=== PATIENT | female | born 1955 | race Caucasian/White ===

== ENCOUNTER 2025-04-02 11:39 | Outpatient (CLI) | payer MEDICARE, OTHER, SELFPAY ==
--- NOTE | 2025-04-02 12:49 | ECG_ITS ---
Test Date: 2025-04-02 13:06:20 Measurements Intervals [place] Rate: 66 P: 94 NV: 154 QRS: -22 QRSD: 110 T: 15 QT: 382 QTc: 402 Interpretive Statements SINUS RHYTHM LOW QRS VOLTAGE IN PRECORDIAL LEADS INCOMPLETE RIGHT BUNDLE BRANCH BLOCK BORDERLINE ST-T WAVE ABNORMALITY- ANTEROLAT/INF LEADS BASELINE ARTIFACT- I, II, III, AVR, AVL, AVF, V1-V6 BORDERLINE ECG No previous ECG available for comparison Electronically Signed On 04-02-2025 14:33:52 CDT by Hilario Mott D.O.
[2025-04-02 13:10] LABS: Basophils Percent Auto 0.2 % (0.2-1.2); Eosinophils Absolute Auto 0.2 K/mm3 (0-0.3); Hematocrit 38.3 % (37.0-47.0); Hemoglobin 12.3 g/dL (12.0-15.0); Immature Granulocyte Absolute 0.02 K/mm3 (0.00-0.031); Immature Granulocyte Percent A 0.2 % (0-0.5); Lymphocytes Absolute Auto 1.45 K/mm3 (0.9-3.2); Lymphocytes Percent Auto 17.5 % (18.3-44.2); Mean Corpuscular HGB Conc 32.1 g/dl (32-36); Mean Corpuscular Volume 90.3 fl (80-100); Mean Platelet Volume 9.7 fl (7.4-10.4); Monocytes Absolute Auto 0.6 K/mm3 (0.1-0.6); Monocytes Percent Auto 6.6 % (2.6-8.5); Neutrophils Absolute Auto 6.1 K/mm3 (1.3-6.7); Neutrophils Percent Auto 73.5 % (45.5-73.1); Platelet Count Result 266 k/mm3 (150-375); Red Blood Count 4.24 M/mm3 (4.2-5.4); Red Cell Distribution Width 12.6 % (11.5-14.5); White Blood Count 8.3 K/mm3 (4.5-10.0)
[2025-04-02 13:18] LABS: Albumin Level 4.7 g/dL (3.5-5.1); Anion Gap 12 mmol/L (4-12); Blood Urea Nitrogen 25 mg/dL (7-17); Carbon Dioxide 22 mmol/L (22-30); Chloride 105 mmol/L (98-107); Estimated Glomerular Filt Rate 59; Glucose 91 mg/dL (65-110); Potassium 4.2 mmol/L (3.4-5.0); Sodium 139 mmol/L (137-145)
[2025-04-02 13:59] LABS: Urine Cotinine NEGATIVE
[2025-04-02 14:11] LABS: Hemoglobin A1C 5.5 % (<5.7)
== END 2025-04-02 11:40 | disposition home or self-care (01) ==
LOC: ANHSURGERY 11:46
PROVIDERS: PCP Physician Assistant; Visit Provider Orthopaedic Surgery
DX: Z01.818 Encounter for other preprocedural examination (principal); M16.12 Unilateral primary osteoarthritis, left hip
CPT/HCPCS: 80048; 80307; 82040; 83036; 85025; 87081; 93005

== ENCOUNTER 2025-04-22 00:47 | Day surgery (SDC) | payer MEDICARE, OTHER, SELFPAY ==
[2025-04-02 11:52] VITALS: BMI 36.6
[2025-04-02 12:00] VITALS: BP 137/82; PULSE 67; RESP 16; TEMP 36.7; O2SAT 95
--- NOTE | 2025-04-02 12:22 | PC.NURSE ---
Report to the Outpatient Waiting Room, entrance under the green pavilion located off [facility], at time ___6:00AM____ on date ___04/22/25____. Planned Procedure Time: ___7:30AM .? Time changes happen often and if your time is changed the preop area will call you the afternoon before. - You and your visitor will be asked to self-screen and do not enter if you have any COVID symptoms. Please call surgeon if you need to reschedule. - A mask is optional within the hospital at this time. Patients may have clear liquids (water, carbonated beverages, clear teas, apple juice) until 3 hours prior to surgery (4:30AM) with a maximum of 20 ounces. - No food from midnight until time of surgery and no smoking, or chewing tobacco (or any form of nicotine). No chewing gum, candy or mints. Take only the following medications with a SIP of water on the morning of surgery: ____NONE DO NOT STOP ANY OF YOUR OTHER PRESCRIPTION MEDICATIONS PRIOR TO SURGERY EXCEPT THE FOLLOWING Medications to discontinue per physician ___HOLD DICLOFENAC (ALL NSAIDS) AND ALL VITAMINS/SUMMPLEMENTS 7 DAYS PRE-OP PER DR RABAGO Date to take last dose 04/14/25 Please no make-up, nail latvian, hairspray, perfume, deodorant, or body powder the day of surgery.? No jewelry (including any body piercings) or valuables the day of surgery, leave them at home.? Please take a shower or bath the night before, or the morning of, surgery with an antibacterial soap.? Wear comfortable, loose fitting clothing.? - Jewelry must be removed prior to entering the operating room.? Rings and piercings that are not removed may be cut off. - The hospital will not accept responsibility for valuables.? - Please leave all valuables, including medications, at home the day of surgery. If you are going home after surgery, a licensed taxi driver supervisor must drive you home.? - NO public transportation without another adult if you receive anesthesia. - We recommend that an adult stay with you for 24 hours following discharge. - We also recommend that you do not drive, make important decision, drink alcoholic beverages, or take any drugs that were not prescribed by your health care provider for at least 24 hours after your discharge time. Follow any additional instructions given to you from your surgeon. Telephone instructions given to PATIENT AND GRANDDAUGHTER and asked if any additional questions and then verbalized understanding. Patient advised to call surgeon office or pre surgery nurse liaison [phone] if any additional questions.
--- NOTE | 2025-04-19 08:04 | PM.IMHP ---
H&P: HPI History of Present Illness Date/Time: 04/19/25 08:04 Chief Complaint: Left hip DJD Narrative: 70-year-old female who presents today for a left total hip arthroplasty. Patient has been having symptoms for over year in the left hip. She has been on diclofenac 75 mg b.i.d.. Patient has advanced type 2 osteoarthritis left hip. At this point patient is having rather severe symptoms on a daily basis in the groin in posterior lateral buttocks. She has been using a cane regularly due to the pain in the hip. At this point she feels she is ready proceed with total hip arthroplasty rather than continue nonsurgical treatment. Review of Systems Review of Systems: All systems reviewed & are unremarkable except as noted in HPI and below PMFSH Surgical History Surgical History (Updated 01/23/25 @ 10:00 by Christina Richardson [facility]) History of bunionectomy History of cholecystectomy History of bilateral mastectomy Family History Family History (Updated 01/23/25 @ 10:00 by Christina Richardson [facility]) Mother DVT (deep venous thrombosis) Social History Social History (Updated 01/23/25 @ 10:08 by Jeimy Yanez [facility]) Smoking packs per day: 1 Smoking cigarettes per day: 20.0 Years smoked: 40 Smoking pack-years: 40.00 Smoking status: Former smoker Tobacco type: cigarettes Smoking end date: 12/16/16 Alcohol intake: current Substance use: never Current Housing: Decline to Answer Concerned About Future Housing: Decline to Answer Difficulty Paying Gas/Electric Bills: Decline to Answer Difficulty Paying for Meds: Decline to Answer Currently Unemployed: Decline to Answer Education: Decline to Answer Difficulty w/ Childcare or Family Care: Decline to Answer Living arrangements: alone Spiritual care concerns: No Meds Home Medications and Allergies Home Medications ?Medication ?Instructions ?Recorded ?Confirmed ?Type Allergy Relief 10 mg PO DAILY 01/23/25 04/02/25 History Move Free Joint Health 1 cap PO DAILY 01/23/25 04/02/25 History acetaminophen 500 mg oral powder 1,000 mg PO Q6H PRN pain 01/23/25 04/02/25 History packet (Tylenol Extra Strength) famotidine 40 mg tablet 40 mg PO QHS 01/23/25 04/02/25 History diclofenac sodium 75 mg 75 mg PO Q12H PRN pain 04/02/25 04/02/25 History tablet,delayed release glucosamine sulfate 500 mg tablet 500 mg PO DAILY 04/02/25 04/02/25 History (Glucosamine) loratadine 10 mg tablet (Claritin) 10 mg PO DAILY 04/02/25 04/02/25 History Allergies Allergy/AdvReac Type Severity Reaction Status Date / Time ciprofloxacin (From Cipro) Allergy Mild Rash Verified 04/02/25 12:08 Sulfa (Sulfonamide Allergy Mild Rash Verified 04/02/25 12:08 Antibiotics) atorvastatin AdvReac MUSCLE PAIN Verified 04/02/25 12:08 Exam Narrative: 70-year-old female alert pleasant. She is 5 ft 4 and 205 lb BMI is 34.9. Left hip range of motion is from 0-95 degrees. Internal rotation lacks 5? shy of neutral and external rotation is to 50. She has anterior groin pain with full flexion and internal rotation. She has normal abduction strength and minimal tenderness over the greater trochanter. Stinchfield maneuver causes her anterior thigh pain. She walks with a pronounced limp. 1+ dorsalis pedis and posterior tibial artery pulse palpable. No edema in either lower extremity. She has normal sensation both lower extremities. Resp: Auscultation: clear to auscultation bilaterally Cardio: Rate: regular rate Rhythm: regular rhythm Assessment and Plan Assessment and plan (1) Primary osteoarthritis of left hip: Code(s): M16.12 - Unilateral primary osteoarthritis, left hip Status: Acute Assessment and Plan: 70-year-old female who has advanced osteoarthritis left hip. She is having severe symptoms on a daily basis and feels this point she is ready proceed with total hip arthroplasty. Surgical procedures well as the risks and complications were discussed in detail all questions were answered and we will proceed. Patient will stop her diclofenac 1 week prior to surgery. She will also avoid any aspirin ibuprofen products 1 week prior to surgery. Her nasal swab was negative. Hemoglobin is 12.3 and platelets were 266. Chem panel insert creatinine at 0.94. Patient will see her primary care doctor for pre-surgical clearance.
[2025-04-22] VITALS (18 sets, daily range): BP systolic 104–157; BP diastolic 53–95; PULSE 71–103; RESP 12–86; TEMP 36.4–36.7; O2SAT 94–100; BMI 36.5
--- NOTE | ~2025-04-22 | XR_ITS ---
EXAMINATION: XR surgery orthopedic DATE: 04/22/2025 11:29 INDICATION: Intraoperative evaluation during left total hip arthroplasty TECHNIQUE: Single AP fluoroscopic image of the left hip was obtained during procedure performed by Dr Armen Brito. Radiologist was not present for the imaging or procedure. The amount of fluoroscopy time u sed during this procedure was 0.9 minutes. Total DAP was 0.437 mGym^2. FINDINGS: Intraoperative image during a left total hip arthroplasty demonstrate placement of a left total hip a rthroplasty the acetabular component of which is fixed with at least. 2 screws and which appears in n ear anatomic alignment on the single image provided. Portions of the pelvis are excluded from the fie ld-of-view. No fractures in the visualized bones. IMPRESSION: 1. Expected appearance during left total hip arthroplasty. See procedure note for further detail. Reviewed, dictated and finalized at location A. IMPRESSION: 1. Expected appearance during left total hip arthroplasty. See procedure note f or further detail.
--- NOTE | ~2025-04-22 | XR_ITS ---
XR hip LT 1V w AP pelvis Ordering provider: Michael Brito MD History: . LEFT TOTAL HIP ANTERIOR APPROACH . Comparison: None. FINDINGS: BONES: No acute fracture or dislocation. HIP JOINT SPACES: Left hip arthroplasty. Severe right hip osteoarthritic changes. PUBIC SYMPHYSIS: Normal. SOFT TISSUES: Postoperative changes in the left hip area. IMPRESSION: No acute osseous abnormality pelvis. Left hip arthroplasty. Reviewed, dictated and finalized at location A.
--- OUTSIDE RECORDS SUMMARY | 2025-04-22 01:02 | XMS_ITS | Clinical Summary ---
Author Organization [facility] Address [address] [place] [address] Care Team Providers Care Manager Advertising Name Role Phone Katy Farooq PA-C Primary Care Provider [phone] Neal Albright DPM Unavailable [phone] Dejuan Solis MD Unavailable [phone] Kendall Richardson MD Unavailable Allergies Active Allergy Reactions Criticality Noted Date Comments Atorvastatin Joint Pain 04/04/2025 Ciprofloxacin Itching,Myalgias Medium 03/21/2020 Sulfa Antibiotics Unknown 07/20/2012 Medications Glucosamine HCl 1500 MG Tab Take by mouth daily. 013 Active Fexofenadine HCl (ALLERGY 24-HR OR) Take by mouth daily. Active acetaminophen (TYLENOL) 500 MG tablet Take 2 tablets (1,000 mg total) by mouth daily as needed for Pain. Active mupirocin (BACTROBAN) 2 % ointment APPLY TO WOUNDS TWICE DAILY UNTIL HEALED. NARES PRECAUTIONS 024 Active clobetasol (TEMOVATE) 0.05 % ointmentIndicatio ns:Eczema of both hands Apply topically 2 (two) times daily. 60 g 1 025 Active diclofenac EC (VOLTAREN) 75 MG tabletIndications :Primary osteoarthritis of knees, bilateral Take 1 tablet (75 mg total) by mouth 2 (two) times daily. 180 tablet 3 025 Active famotidine (PEPCID) 40 MG tabletIndications :Gastroesophageal reflux disease without esophagitis Take 1 tablet (40 mg total) by mouth nightly at bedtime. at bedtime 90 tablet 3 025 Active omeprazole (PRILOSEC) 40 MG capsuleIndication s:Gastroesophagea l reflux disease without esophagitis Take 1 capsule (40 mg total) by mouth daily. 30 capsule 2 025 2024 Discontinued traMADol (ULTRAM) 50 MG tabletIndications :Chronic Pain Take 1 tablet (50 mg total) by mouth every 6 (six) hours as needed for Pain. Indications: Chronic Pain 20 tablet 025 2024 Discontinued atorvastatin (LIPITOR) 40 MG tabletIndications :Dyslipidemia Take 1 tablet (40 mg total) by mouth nightly at bedtime. 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 The only thing proven to slow the progression of osteoarthritis is weight loss. Every pound lost relieves 4 to 6 pounds of stress across the knee. We discussed unloading braces. Formal physical therapy to help with flexibility, mobility, and strength. We discussed TENS units. Nonsteroidal anti-inflammatories as well as Tylenol and pain medication and their side effects. We discussed steroid versus Visco supplement injection. We discussed eventual total knee arthroplasty. Because the patient is not having any pain at this time, she will continue using a brace and taking the Diclofenac and Tylenol. She will give us a call when she is having pain and we can give her a steroid shot at that time. Rosacea 04/28/2015 Overview (09/21/2018): acting up Malignant neoplasm of female breast ([facility]) 08/22/2013 Overview (09/21/2018): bilateral mastectomies with reconstruction Malignant neoplasm of other specified sites of female breast Onychomycosis of toenail 08/07/2012 Resolved Problems Problem Noted Date Diagnosed Date Resolved Date Equinus deformity of right foot 02/23/2018 09/21/2018 Plantar fasciitis 10/13/2017 09/21/2018 Onychogryposis 08/07/2012 09/21/2018 Encounters Date Type Department Care Team Description 04/04/2025 11:40 AM CDT Office Visit [address] [phone] Katy Farooq PA-C Follow Up 04/04/2025 Travel 02/11/[address] [phone] Katy Farooq PA-C Medication Problem 01/31/[address] [phone] Katy Farooq PA-C Question 01/29/[address] [phone] Katy Farooq PA-C Question 01/28/2025 8:40 AM CDT Office Visit [address] [phone] Katy Farooq PA-C Follow Up (Talk about orthopedic appt ); Acid Reflux (The medication has been helping ) 01/28/2025 Travel 01/23/2025 Scan [facility] SRVCS Scanned, Doc [facility] from Last 3 Months Immunizations Immunization Administration Dates Next Due [facility] COVID-19 (12+) MRNA, LNP-S, PF, 100 MCG/ 0.5 ML DOSE 02/02/2021,01/05/2021 MODERNA COVID-19 (INSULATION BLOWER LISA SHWETA), MRNA, LNP-S, PF, 50 MCG/ 0.25 ML DOSE 05/17/2022,11/17/2021 PFIZER COVID-19 BIVALENT (12 +) mRNA, LNP-S, PF, 30 MCG/0.3 ML DOSE 11/25/2022 Pneumococcal (Prevnar 20) 12/28/2022 Shingrix 01/13/2023,11/13/2022 Tdap (Generic) 12/13/2022,03/07/2013 Family History Medical History Relation Comments melanoma Daughter Hypertension Father ? [place] Father Dementia Maternal Grandfather Diabetes Maternal Grandmother Stroke Maternal Grandmother Breast Cancer Mother mets to liver, l shekhar, brain Dementia Mother Diabetes Paternal Grandfather muscular dystrophy Paternal Grandmother ? No Known Problems Son Relation Status Comments Daughter Father Maternal Grandfather Maternal Grandmother Mother Paternal Grandfather Paternal Grandmother Son Social History Tobacco Use Types Packs/Day Years Used Date Smoking Tobacco: Former Cigarettes 1 42.2 1 975 - 12/16/2016 Passive Smoke Exposure: Past Smokeless Tobacco: Never Tobacco Cessation:Counseling Given: No Comments:Former smoker Alcohol Use Standard Drinks/Week Comments Yes 0 (1 standard drink = 0.6 oz pur e alcohol) Occastioanlly, once/month PHQ-2 Answer Date Recorded Patient Health Questionnaire-2 Score 0 01/28/2025 Comments No Sex and Gender Information Value Date Recorded Sex Assigned at Female 12/10/2024 1:26 PM [employer] DEVELOPER Legal Sex Female 7:40 PM CDT Gender Identity Not on file Sexual Orientation Not on file 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 [employer] Not on file N ot on file Not on file Last Filed Vital Signs Vital Sign Reading Time Taken Comments Blood Pressure 118/69 04/04/2025 11:28 AM CDT Pulse 79 04/04/2025 11:28 AM CDT Temperature 36.8 C (98.3 F) 04/04/2025 11:28 AM CDT Respiratory Rate 18 04/04/2025 11:28 AM CDT Oxygen Saturation 97% 04/04/2025 11:28 AM CDT Inhaled Oxygen Concentration - - Weight 95 kg (209 lb 6.4 oz) 04/04/2025 11:28 AM CDT Height 167.6 cm (5' 6) 12/17/2024 1:14 PM CDT Body Mass Index 33.8 12/17/2024 1:14 PM CDT Plan of Treatment Health Maintenance Due Date Last Done Comments Hepatitis C 02/11/1972 Lung Cancer Screening 02/11/2004 Annual Medicare Wellness Visit 2019 Dexa Scan (General) 2019 Colorectal Cancer Screening Colonoscopy (10 Years) 06/17/2020 06/17/2010 COVID-19 Vaccine ( season) 2024 11/25/2022, 05/17/2022, 11/17/2021, Additional history exists RSV Immunization or 60+ Years (1 - 1-dose 75+ series) 2029 DTaP, Tdap and Td Vaccines (3 - Td or Tdap) 12/13/2032 12/13/2022, 03/07/2013 Pneumococcal Vaccine: 50+ Years Completed 12/28/2022 Zoster Vaccines Completed 01/13/2023, 11/13/2022 PHQ-2 (Physician [place]) Completed 01/28/2025 Meningococcal B Vaccine Aged Out No l onger eligible based on patient's age to complete this topic Meningococcal Vaccine Aged Out No russell amber eligible based on patient's age to complete this topic RSV Immunizations Under 20 Months Aged Out No longer eligible based on patient's age to complete this topic Procedures Procedure Name Priority Date/Time Associated Diagnosis Comments COLONOSCOPY GENERIC (SCAN ORDER) Routine 06/17/2010 from Last 3 Months or Most Recently Relevant to Health Maintenance Results * COLONOSCOPY (06/17/2010) us Documents Scanned SCANNING Edited Result - Final from Last 3 Months or Most Recently Relevant to Health Maintenance Insurance MEDICARE [facility] [employer] Care Teams Manager Advertising Relationship Specialty Start Date End Date Katy Farooq PA-C [id number] [address] PCP - General PHYSICIAN FUNERAL LOCATION MANAGER 09/21/18 Neal Albright DPM [address] [facility] [address] [place] [address] Referring Physician PODIATRY/SURGERY 04/29/21 Dejuan Solis MD [address] [facility] [address] [place] [address] Consulting Physician ORTHOPAEDIC SURGERY 04/29/21 Kendall Richardson MD [address] [place] [address] Referring Physician OPHTHALMOLOGY 05/09/23
--- OUTSIDE RECORDS SUMMARY | 2025-04-22 01:02 | XMS_ITS | Patient Health Record ---
Author Organization [facility] Address [address] [place], [place] [id number] Care Team Providers Care Senior Cognos Developer Name Role Phone VICTORIA DELGADO Unavailable [phone] Katy Farooq Unavailable Unavailable Reason For Referral No Information Medications Medication SIG (Take, Route, Frequency, Duration) Notes Start Date End Date Status diclofenac sodium 75 MG Delayed Release Oral Tablet ORAL diclofenac sodium 75 MG Delayed Release Oral TabletOriginal Medicationdiclofenac sodium 75 MG Delayed Release Oral Tablet *Reorder from mapp2link for eRx and Interaction Alerts* 09/23/2020 Active Plan Of Treatment No Information Insurance Providers Payer Name Payer Address Payer Phone Subscriber Number Group Number Insured Name Patient Relationship to Insured Coverage Start Date Coverage End Date Medicare Part B [place] [address] [place] [address] [id number] JOHANNE SINGER Self - patient is the insured [employer] [address] [place] [address] [id number] JOHANNE SINGER Self - patient is the insured [facility] [address] [place], [place] [id number] JOHANNE SINGER Self - patient is the insured
[2025-04-22] MEDS: LACTATED RINGERS 1,000 ML 30 ML IV CONT ×2 (06:25→11:54)
[2025-04-22] MEDS: ACETAMINOPHEN 500 MG TABLET 1000 MG PO (06:35)
[2025-04-22] MEDS: VANCOMYCIN 1,500 MG/NS 500 ML BAG 250 MG IVPB (06:50)
[2025-04-22] MEDS: TRANEXAMIC ACID 1,000MG/ISO100 1,000 MG/100 ML BAG 200 MG IVPB (07:12)
--- NOTE | 2025-04-22 07:13 | WPDHPUPDATE1 ---
History and Physical Update Update Date/Time: 04/22/25 07:13 History and Physical has been reviewed, including an updated exam of the patient. There are NO changes in the patient's condition. Risks, benefits, and alternatives have been discussed and questions answered. Patient agrees to proceed with procedure.
--- NOTE | 2025-04-22 07:24 | P.PNAN_ITS ---
Anes - Initial Pre Proc Eval Procedure: Operation Date: 04/22/25 07:30 Proposed Procedures p Left Total Hip Arthroplasty, Direct Anterior Approach - Michael Brito MD Date/Time: 04/22/25 07:24 Surgeon: Michael Brito MD Pre Op Diagnosis: OA left hip Patient Data Age: 70 Gender: F Height: 1.61 m Weight: 95 kg Last Vital Signs Temp 97.8 F 04/22/25 05:50 Pulse 71 04/22/25 05:50 Resp 14 04/22/25 05:50 BP 157/81 H 04/22/25 05:50 Pulse Ox 96 04/22/25 05:50 O2 Del Method Room Air 04/22/25 05:50 Allergies Allergy/AdvReac Type Severity Reaction Status Date / Time ciprofloxacin (From Cipro) Allergy Mild Rash Verified 04/22/25 06:37 Sulfa (Sulfonamide Allergy Mild Rash Verified 04/22/25 06:37 Antibiotics) atorvastatin AdvReac MUSCLE PAIN Verified 04/22/25 06:37 Home Medications ?Medication ?Instructions ?Recorded ?Confirmed ?Type acetaminophen 500 mg oral powder 1,000 mg PO Q6H PRN pain 01/23/25 04/22/25 History packet (Tylenol Extra Strength) famotidine 40 mg tablet 40 mg PO QHS 01/23/25 04/02/25 History diclofenac sodium 75 mg 75 mg PO Q12H PRN pain 04/02/25 04/22/25 History tablet,delayed release glucosamine sulfate 500 mg tablet 500 mg PO DAILY 04/02/25 04/22/25 History (Glucosamine) loratadine 10 mg tablet (Claritin) 10 mg PO DAILY 04/02/25 04/02/25 History Laboratory Tests 04/22/25 06:17 Blood Type O Negative Antibody Screen Negative Patient hx anesthesia problems: none Family hx anesthesia problems: none Results Review: All pre-operative results and documents have been reviewed as part of the pre- operative evaluation. [facility] Surgical History Surgical History (Updated 01/23/25 @ 10:00 by Christina Richardson CMA) History of bunionectomy History of cholecystectomy History of bilateral mastectomy Family History Family History (Updated 01/23/25 @ 10:00 by Christina Richardson CMA) Mother DVT (deep venous thrombosis) Social History Social History (Updated 01/23/25 @ 10:08 by Jeimy Yanez CMA) Smoking packs per day: 1 Smoking cigarettes per day: 20.0 Years smoked: 40 Smoking pack-years: 40.00 Smoking status: Former smoker Tobacco type: cigarettes Smoking end date: 12/16/16 Alcohol intake: current Substance use: never Current Housing: Decline to Answer Concerned About Future Housing: Decline to Answer Difficulty Paying Gas/Electric Bills: Decline to Answer Difficulty Paying for Meds: Decline to Answer Currently Unemployed: Decline to Answer Education: Decline to Answer Difficulty w/ Childcare or Family Care: Decline to Answer Living arrangements: alone Spiritual care concerns: No Anes - Eval Final PreProcedure Day of Procedure 04/22/25 07:24 Patient weight: obese Heart: regular rate and rhythm Lungs: clear to auscultation Airway: Mallampati scale class II Neurological: alert and oriented Last oral intake: >/= 8 hours ASA classification: III Emergent: no Anesthetic plan: proceed Anesthesia type and monitoring: general ETT and standard monitoring Results Review: All pre-operative results and documents have been reviewed as part of the pre- operative evaluation. Informed Consent: The patient's anesthetic plan and its attendant risks and benefits were discussed with the patient/family/POA. Questions were solicited and answers provided to the satisfaction of the patient/family/POA.
[2025-04-22] MEDS: ceFAZolin 2 GM in SODIUM CHLORIDE 0.9% IV 50 ML 100 ML IVPB (07:38)
[2025-04-22] MEDS: SODIUM CHLORIDE 0.9% IV 37.7 ML, MORPHINE SULFATE INJ (*CRX) 2 MG, ROPivacaine HCL 1% 2... INFILTRATE (08:31)
[2025-04-22] MEDS: TRANEXAMIC ACID 1,000 MG/10 ML AMPUL 1000 MG IV PUSH (11:19)
[2025-04-22] MEDS: KETOROLAC 15 MG/ML VIAL (*BKC) IV PUSH ×2 (11:26→18:08)
--- NOTE | 2025-04-22 12:00 | PM.OP ---
Procedure Note - Brief Procedure Note - Brief Date of procedure: 04/22/25 OA left hip Procedure performed: Left anterior total hip arthroplasty Surgeon: VALERIA Carney Findings: 70-year-old female underwent left anterior total hip arthroplasty on 04/22. I was involved in the procedure including positioning the patient on the OR table 1st assisting through the time surgery. Total time was 3-1/2 hours
--- NOTE | 2025-04-22 12:08 | P.OP_ITS ---
Procedure Note - Detailed Date of Procedure 04/22/25 Pre-op Diagnosis OA left hip, obesity BMI 36.5 Post-op Diagnosis Same Procedure Performed Left total hip arthroplasty direct anterior approach Surgeon Michael Brito MD [employer] Kat Anesthesia General Description of Procedure Patient was brought to the operating room and general anesthesia was administered. Dale catheter was placed. Boots were applied the feet after padding and [facility] hip prepped and draped in usual fashion. SCDs were on the calves and running during the procedure. Weight based vancomycin, 2 g Ancef and 1 g TXA given preoperatively. There was extra difficulty with the procedure due to her obesity with BMI of 36.5 which she had approximately 45 minutes of surgical time to the procedure. A 10 cm longitudinal incision was made starting 3 cm lateral to the ASIS. Dissection was carried down to the fascia over the tensor fascia nilton which was longitudinally incised. Fascia elevated off the anterior 50% of the tensor fascia nilton muscle and interval between TFL and rectus femoris developed. Crossing branches of ascending lateral femoral circumflex vessels were ligated with suture and divided. Retractor was placed anteromedial to the capsule the hip abducted internally rotated the gluteus minimus elevated off the lateral capsule. Inverted T capsulotomy was made a femoral neck osteotomy made according to preoperative templating. Femoral head was removed. It was severely arthritic. The acetabulum was exposed. There were granulation tissue covered erosions covering most of the superior surface of the acetabulum. Labrum was excised. The posterolateral rim of the acetabulum was loose. This was the shell covering the prominent superolateral acetabular cyst that showed on the x-rays from February. This shell of bone was loose and therefore removed. 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 The cyst therefore was uncontained and not suitable for grafting. The leg was externally rotated extended with the table hook in place and complete release of the residual lateral capsule over attachment on the femur performed. The exposure the proximal femur was still limited. Interval between conjoined tendon and piriformis was incised which allowed the conjoined tendon to recess in the piriformis to flip. With the leg back in the horizontal position the acetabulum was exposed. Under fluoroscopic guidance we medialized to the medial wall with a 44 Reamer. Due to the wear on the posterior acetabular rim and wall, care was taken to avoid posterior reaming. We reamed up to a size 49 and a light reaming with the size 50. This did not quite reach the periphery anteriorly or superiorly. The 51 trial was not snug and therefore the 50.5 mm diameter emphasis shell size 50 was felt to be too small. We reamed up to a size 51 which came very close to the periphery and the 52 trial shell fit snugly. We chose the 52 pinnacle cup. This was seated fully at 40? of abduction and appropriate anteversion and this achieved a nice press fit. A 40 mm long screw was inserted into the superior ilium which had excellent purchase. The posterior superior screw was only a 15. This obtained good purchase though. The 36 inner diameter polyethylene liner was fully seated. The femur was then exposed with external rotation leg extension and anterior elevation with the table hook and we broached up to a size 7 which had torsional stability. On trialing we had matched our preoperative depth of broach seating planned. The standard neck 5 mm head lengthened the leg 3 mm and was still s omewhat loose with lateral translation with the bone hook being too loose I felt. With the high offset neck and a 1.5 mm head this gave equal leg lengths under fluoro referencing the lesser tuberosities and very appropriate soft tissue tension to longitudinal Shuck and lateral translational pull. We confirmed torsional stability of the 7 broach again and calcar planed and placed the size 7 high offset Actis stem which seated fully the collar resting on the calcar no cracks in the bone. The 1.5 by 36 mm ceramic head was impacted on the clean and dried trunnion the hip reduced stability reconfirmed. The superior limb of the capsulotomy was approximated with 2. Vicryl. The local anesthetic cocktail was injected in the periarticular soft tissues. Two additional g of Ancef 1 g of TXA administered. Wound was dry at time of wound closure. The fascia was closed with running 1. Vicryl. Drain placed deep in the subcu skin closed with 2 subcutaneous Vicryl and glue. Cell Saver estimated total blood loss at 950 cc. 375 cc of packed cells given back from the Cell Saver. She tolerated the procedure well transferred to postop recovery room stable condition. As the bone quality of her acetabulum was suboptimal due to the posterolateral acetabular rim defect I will plan to have her be 50% weight-bearing with a walker for the 1st month. [facility] Billing Surgery - Charge Forward: Surgery Billing (Left total hip replacement)
[2025-04-22] MEDS: fentaNYL CITRATE INJ (*CRX) 100 MCG/2 ML VIAL 25 MCG IV PUSH (12:25)
[2025-04-22] MEDS: ONDANSETRON INJ 4 MG/2 ML VIAL IV PUSH (12:39)
--- NOTE | 2025-04-22 13:51 | SUR.PHASEI ---
1315: Patient meets PACU discharge criteria, unit bed unavailable at this time. Patient placed in extended recovery status.
[2025-04-22] MEDS: PROPARACAINE HCL 0.5% 15 ML OPHTH SOLN 1 DROP EACH EYE (16:10)
[2025-04-22] MEDS: ARTIFICIAL TEARS OPHTH SOLN 15 ML BOTTLE 1 DROP EACH EYE ×2 (16:12→17:48)
[2025-04-22] MEDS: DICLOFENAC SODIUM 0.1% OPHTH SOLN 2.5 ML BOTTLE 1 DROP EACH EYE (16:13)
--- NOTE | 2025-04-22 16:26 | ADMGEN ---
This patient, Charlene Cheung, was admitted to -. Patient/family oriented to hospital policies and general routines including ID bracelet, bed and alarms, visiting hours, pain management, procedures, bathroom and other care routines, personal items, smoking policy, room service/diet, and visiting hours. Information on how to activate the Rapid Response Team has been discussed. Patient/Family are encouraged to report perceived risks to care and to ask questions if they do not understand what they are told or what they should do.
[2025-04-22] MEDS: dexAMETHasone SOD PHOS INJ 10 MG/ML 1 ML VIAL IV PUSH (16:51)
[2025-04-22] MEDS: ceFAZolin 2 GM/D5W 50 ML 2 GM/50 ML BAG IVPB (17:26)
[2025-04-22] MEDS: SENNA/DOCUSATE SODIUM TABLET 2 TAB PO (17:37)
[2025-04-22] MEDS: ACETAMINOPHEN 325 MG TABLET 650 MG PO ×2 (17:37→21:14)
[2025-04-22] MEDS: VANCOMYCIN HCL 1,000 MG in SODIUM CHLORIDE 0.9% IV 250 ML 250 MG IVPB (18:43)
[2025-04-22] MEDS: oxyCODONE HCL (*CRX) 5 MG TAB IR PO (21:14)
[2025-04-22] MEDS: FAMOTIDINE 20 MG TABLET PO (21:14)
[2025-04-23] MEDS: ACETAMINOPHEN 325 MG TABLET 650 MG PO ×4 (00:40→12:35)
[2025-04-23] MEDS: oxyCODONE HCL (*CRX) 5 MG TAB IR PO ×3 (00:40→09:29)
[2025-04-23] MEDS: KETOROLAC 15 MG/ML VIAL (*BKC) IV PUSH (00:41)
[2025-04-23] MEDS: ceFAZolin 2 GM/D5W 50 ML 2 GM/50 ML BAG IVPB ×2 (00:43→09:25)
[2025-04-23 02:41] VITALS: BP 100/52; PULSE 72; RESP 20; TEMP 36.3; O2SAT 94
[2025-04-23] MEDS: DICLOFENAC SODIUM 0.1% OPHTH SOLN 2.5 ML BOTTLE 1 DROP EACH EYE ×2 (05:18→15:04)
[2025-04-23 05:22] VITALS: BP 92/76; PULSE 76; RESP 20; TEMP 36.7; O2SAT 95
[2025-04-23 05:25] LABS: Hematocrit 29.0 % (37.0-47.0); Hemoglobin 9.3 g/dL (12.0-15.0); Immature Granulocyte Percent A 0.5 % (0-0.5); Lymphocytes Absolute Auto 0.79 K/mm3 (0.9-3.2); Mean Corpuscular HGB Conc 32.1 g/dl (32-36); Mean Corpuscular Hemoglobin 29.0 pg (26-34); Mean Corpuscular Volume 90.3 fl (80-100); Nucleated Red Blood Cells Absolute Auto 0.000 K/mm3 (0.0-0.012); Nucleated Red Blood Cells Perc 0.0 % (0.0-0.2); Platelet Count Result 262 k/mm3 (150-375); Red Blood Count 3.21 M/mm3 (4.2-5.4); White Blood Count 10.8 K/mm3 (4.5-10.0)
[2025-04-23 05:45] LABS: Anion Gap 10 mmol/L (4-12); Blood Urea Nitrogen 22 mg/dL (7-17); Calcium 8.8 mg/dL (8.4-10.2); Carbon Dioxide 20 mmol/L (22-30); Chloride 106 mmol/L (98-107); Estimated CRCL calculation 53 ml/min; Estimated Glomerular Filt Rate 58; Glucose 135 mg/dL (65-110); Potassium 4.2 mmol/L (3.4-5.0); Sodium 136 mmol/L (137-145)
[2025-04-23 05:50] VITALS: BP 118/60
[2025-04-23] MEDS: VANCOMYCIN HCL 1,000 MG in SODIUM CHLORIDE 0.9% IV 250 ML 250 MG IVPB (06:08)
--- NOTE | 2025-04-23 07:18 | PM.PNORT ---
Subjective Subjective Date/Time Seen: 04/23/25 07:18 Interval history: Postop day 1 patient is alert. She is afebrile vital signs stable. Blood pressure running slightly low. Patient has not been out of bed except to use the restroom several times overnight. She got up to the floor late yesterday and therapy did not see her. Morning labs are noted. Patient's pain is well controlled. Drain is out dressing has been changed. Neurovascularly she is intact. Patient is 50% weight-bearing for the 1st month with the walker. Therapy is going to work with the patient this morning and again this afternoon to make sure she can maintain weight-bearing status. Also patient will be here till this afternoon for IV antibiotics and make sure her pain is well controlled. Eliquis will get started this morning. Will check on the patient's status later this morning to see how she is done with morning therapy. Objective Data Vital Signs Vital Signs: Vital Signs - 24 hr 04/22/25 11:54 04/22/25 12:00 04/22/25 12:15 Temperature 98.1 F Pulse Rate 99 92 90 Respiratory Rate 13 16 14 Blood Pressure 137/91 H 134/75 135/86 Pulse Oximetry 97 100 100 Oxygen Delivery Simple Face Mask Simple Face Mask Simple Face Mask Oxygen Flow Rate 8 8 8 04/22/25 12:30 04/22/25 12:45 04/22/25 13:00 Temperature Pulse Rate 87 86 103 H Respiratory Rate 18 14 16 Blood Pressure 142/89 H 142/81 H 144/80 H Pulse Oximetry 100 94 94 Oxygen Delivery Simple Face Mask Room Air Room Air Oxygen Flow Rate 8 04/22/25 13:15 04/22/25 13:45 04/22/25 14:15 Temperature Pulse Rate 85 82 81 Respiratory Rate 14 12 12 Blood Pressure 142/79 H 148/95 H 118/89 Pulse Oximetry 96 97 97 Oxygen Delivery Room Air Room Air Room Air Oxygen Flow Rate 04/22/25 14:45 04/22/25 15:15 04/22/25 15:45 Temperature Pulse Rate 87 75 85 Respiratory Rate 18 12 18 Blood Pressure 140/85 129/87 139/85 Pulse Oximetry 99 98 99 Oxygen Delivery Room Air Room Air Room Air Oxygen Flow Rate 04/22/25 16:15 04/22/25 16:45 04/22/25 17:51 Temperature 97.5 F L Pulse Rate 78 78 85 Respiratory Rate 12 16 86 H Blood Pressure 124/85 132/81 127/76 Pulse Oximetry 96 98 99 Oxygen Delivery Room Air Room Air Oxygen Flow Rate 04/22/25 18:56 04/22/25 20:00 04/22/25 22:00 Temperature 97.6 F Pulse Rate 85 84 Respiratory Rate 16 20 Blood Pressure 104/53 L Pulse Oximetry 99 95 Oxygen Delivery Room Air Room Air Oxygen Flow Rate 04/23/25 02:41 04/23/25 05:22 04/23/25 05:50 Temperature 97.4 F L 98.0 F Pulse Rate 72 76 Respiratory Rate 20 20 Blood Pressure 100/52 L 92/76 L 118/60 Pulse Oximetry 94 95 Oxygen Delivery Oxygen Flow Rate Intake/Output Intake/Output: Intake & Output 04/20/25 04/21/25 04/22/25 04/23/25 23:59 23:59 23:59 23:59 Intake Total 1190 400 Output Total 35 Balance 1190 365 Meds/Results Medications: Active Medications Generic Name Dose Route Start Last Admin Trade Name Freq PRN Reason Stop Dose Admin Acetaminophen 650 mg 04/22/25 17:00 04/23/25 05:49 Acetaminophen 325 Mg Tablet PO 650 mg Q4H ADAM Administration Apixaban 2.5 mg 04/23/25 09:00 Apixaban 2.5 Mg Tablet PO Q12HR ADAM Artificial Tears 1 drop 04/22/25 15:36 04/22/25 17:48 Artificial Tears Ophth Soln 15 Ml Bottle EACH EYE 1 drop Q2H PRN Administration Dry Eye(s) Cefdinir 300 mg 04/23/25 18:00 Cefdinir 300 Mg Capsule PO Q12H ADAM Diclofenac Sodium 1 drop 04/22/25 16:20 04/23/25 05:18 Diclofenac Sodium 0.1% Ophth Soln 2.5 Ml Bottle EACH EYE 1 drop Q8HR ADAM Administration Famotidine 20 mg 04/22/25 21:00 04/22/25 21:14 Famotidine 20 Mg Tablet PO 20 mg Q12HR ADAM Administration Cefazolin Sodium 2 gm in 50 mls @ 100 mls/hr 04/22/25 17:00 04/23/25 01:13 Ancef 2 Gm/D5w 50 Ml IVPB 04/23/25 09:29 Infused Q8H ADAM Infusion Vancomycin HCl 1,000 mg/ 250 mls @ 250 mls/hr 04/22/25 19:00 04/23/25 06:08 Sodium Chloride IVPB 04/23/25 07:59 250 mls/hr Q12H [facility] Administration Meloxicam 7.5 mg 04/23/25 08:00 Meloxicam 7.5 Mg Tablet PO DAILY@0800 [facility] Morphine Sulfate 2 mg 04/22/25 16:56 Morphine Sulfate (*Crx) 2 Mg/Ml Inj IV PUSH Q2H PRN Breakthrough Pain Rated 4-6 or NPO Naloxone HCl 0.1 mg 04/22/25 16:56 Naloxone Hcl 0.4 Mg/Ml Vial IV PUSH Q2M PRN Opiate Reversal Ondansetron HCl 4 mg 04/22/25 16:56 Ondansetron Inj 4 Mg/2 Ml Vial IV PUSH Q4H PRN Nausea And Vomiting Oxycodone HCl 5 mg 04/22/25 17:00 04/23/25 05:49 Oxycodone Hcl (*Crx) 5 Mg Tab Ir PO 5 mg Q4H ADAM Administration Oxycodone HCl 5 mg 04/22/25 16:56 Oxycodone Hcl (*Crx) 5 Mg Tab Ir PO Q4H PRN Pain Rated 7-10 Polyethylene Glycol 17 gm 04/23/25 09:00 Polyethylene Glycol 3350 17 Gm Powd.Pack PO QAM ADAM Senna/Docusate Sodium 2 tab 04/22/25 17:00 04/22/25 17:37 Senna/Docusate Sodium Tablet PO 2 tab BID ADAM Administration Radiology Results: ITS Impressions Intraoperative X-Ray 04/22/25 11:40 IMPRESSION: 1. Expected appearance during left total hip arthroplasty. See procedure note for further detail. Hip/Pelvis X-Ray 04/22/25 12:02 IMPRESSION: No acute osseous abnormality pelvis. Left hip arthroplasty. Labs Labs: Laboratory Results - last 24 hr 04/22/25 04/23/25 06:17 04:53 WBC 10.8 H RBC 3.21 L Hgb 9.3 L D Hct 29.0 L MCV 90.3 MCH 29.0 MCHC 32.1 RDW 12.8 Plt Count 262 MPV 9.9 Immature Gran % (Auto) 0.5 Neut % (Auto) 83.1 H Lymph % (Auto) 7.3 L Motley % (Auto) 9.0 H Eos % (Auto) 0.0 Baso % (Auto) 0.1 L Lymph # (Auto) 0.79 L Motley # (Auto) 1.0 H Eos # (Auto) 0.0 Baso # (Auto) 0.0 Abs Immat Gran (auto) 0.05 H Absolute Neuts (auto) 9.0 H Absolute Nucleated RBC 0.000 Nucleated RBC % 0.0 Sodium 136 L Potassium 4.2 Chloride 106 Carbon Dioxide 20 L Anion Gap 10 BUN 22 H Creatinine 0.95 Estim Creat Clear Calc 53 Estimated GFR 58 L Glucose 135 H Calcium 8.8 Antibody Screen Negative
[2025-04-23 08:51] VITALS: O2SAT 97
[2025-04-23] MEDS: APIXABAN 2.5 MG TABLET PO (09:25)
[2025-04-23 09:28] VITALS: PULSE 74; RESP 14; O2SAT 99
[2025-04-23] MEDS: SENNA/DOCUSATE SODIUM TABLET 2 TAB PO (09:28)
[2025-04-23] MEDS: FAMOTIDINE 20 MG TABLET PO (09:28)
[2025-04-23] MEDS: MELOXICAM 7.5 MG TABLET PO (09:32)
[2025-04-23 09:57] VITALS: BP 132/61; PULSE 74; RESP 14; TEMP 37; O2SAT 99
--- NOTE | 2025-04-23 10:40 | P.PNAN_ITS ---
Anes - Prog Note Post-Op Date/Time: 04/23/25 10:40 Cardiovascular status: normal Respiratory status: normal Airway patency: baseline Mental status: baseline Vital Signs: Last Vital Signs Temp 37.0 C 04/23/25 09:57 Pulse 74 04/23/25 09:57 Resp 14 04/23/25 09:57 BP 132/61 04/23/25 09:57 Pulse Ox 99 04/23/25 09:57 O2 Del Method Room Air 04/23/25 08:51 O2 Flow Rate 8 04/22/25 12:30 Pain Score (VAS): 3 I/O: Intake & Output 04/22/25 04/23/25 04/23/25 23:59 07:59 15:59 Intake Total 840 400 120 Output Total 35 Balance 840 365 120 Laboratory Tests 04/23/25 04:53 04/23/25 04:53 04/23/25 04:53 WBC 10.8 H RBC 3.21 L Hgb 9.3 L D Hct 29.0 L MCV 90.3 MCH 29.0 MCHC 32.1 RDW 12.8 Plt Count 262 MPV 9.9 Immature Gran % (Auto) 0.5 Neut % (Auto) 83.1 H Lymph % (Auto) 7.3 L [place] % (Auto) 9.0 H Eos % (Auto) 0.0 Baso % (Auto) 0.1 L Lymph # (Auto) 0.79 L [place] # (Auto) 1.0 H Eos # (Auto) 0.0 Baso # (Auto) 0.0 Abs Immat Gran (auto) 0.05 H Absolute Neuts (auto) 9.0 H Absolute Nucleated RBC 0.000 Nucleated RBC % 0.0 Sodium 136 L Potassium 4.2 Chloride 106 Carbon Dioxide 20 L Anion Gap 10 BUN 22 H Creatinine 0.95 Estim Creat Clear Calc 53 Estimated GFR 58 L Glucose 135 H Calcium 8.8 Patient Feedback: Patient satisfied with anesthetic care.
== END 2025-04-23 15:41 | disposition home or self-care (01) ==
LOC: ANHSURGERY 16:55 → ANH2MED 16:57
PROVIDERS: Physician Assistant Surgical; PCP Physician Assistant; Visit Provider Orthopaedic Surgery
PROC: (CPT 27130; principal; 2025-04-22 07:30)
DX: M16.12 Unilateral primary osteoarthritis, left hip (principal); E66.9 Obesity, unspecified; Z68.36 Body mass index [BMI] 36.0-36.9, adult; Z87.891 Personal history of nicotine dependence
CPT/HCPCS: 27130; 36415; 73501; 80048; 85025; 86850; 86900; 86901; 97110; 97161; 97165; 97530; 97535; 99199; J0690; A9270; C1776; J0166; J1100; J1171; J1200; J1885; J2003; J2270; J2405; J2704; J2795; J3010; J3373; J7050; J7120